=== PATIENT | female | born 1980 | race Caucasian/White ===

== ENCOUNTER 2019-01-08 08:39 | Inpatient (IN) | payer MEDICAID ==
[2019-01-08] MEDS ORDERED: BUTORPHANOL 2 MG INJ IV (10:00)
[2019-01-08] MEDS ORDERED: CARBOPROST 250 MCG INJ IM ×2 (10:00→21:00)
[2019-01-08] MEDS ORDERED: AMPICILLIN 2 GM/NS (PMX) 100 ML IV (10:00)
[2019-01-08] MEDS ORDERED: METHYLERGONOVINE 0.2 MG INJ IM ×2 (10:00→21:00)
[2019-01-08] MEDS ORDERED: OXYTOCIN 30 UNITS/LR 500 ML IV ×2 (10:00→21:00)
[2019-01-08] MEDS ORDERED: LIDOCAINE 1% (MPF) 30 ML INJ INJ (10:00)
[2019-01-08] MEDS ORDERED: MISOPROSTOL 200 MCG TAB PR ×2 (10:00→21:00)
[2019-01-08] MEDS: LACTATED RINGER'S 1,000 ML IV ×3 (10:15→17:49)
[2019-01-08] MEDS: OXYTOCIN 30 UNITS/LR 500 ML IV ×4 (10:58→20:54)
[2019-01-08 11:10] LABS: ADD MAN DIFF? NO
[2019-01-08 11:18] LABS: WHITE BLOOD COUNT 7.8 10^3/ul (4.8-10.8)
[2019-01-08 11:18] LABS: BASOPHILS % 0.3 % (0.0-2.0); EOSINOPHILS # 0.1 10^3/ul (0.0-0.5); EOSINOPHILS % 1.1 % (0.0-7.0); HEMATOCRIT 34.3 % (37.0-47.0); HEMOGLOBIN 11.2 g/dl (12.0-16.0); LYMPHOCYTES # 1.4 10^3/ul (0.8-2.9); LYMPHOCYTES % 17.6 % (15.0-51.0); MEAN CORPUSCULAR HEMOGLOBIN 30.9 pg (29.0-33.0); MEAN CORPUSCULAR HGB CONC 32.7 g/dl (32.0-37.0); MEAN CORPUSCULAR VOLUME 94.8 fl (82.0-101.0); MEAN PLATELET VOLUME 11.7 fl (7.4-10.4); MONOCYTE # 0.8 10^3/ul (0.3-0.9); MONOCYTES % 9.9 % (0.0-11.0); NEUTROPHIL # 5.5 10^3/ul (1.6-7.5); NEUTROPHILS % 69.8 % (39.0-77.0); PLATELET COUNT 134 10^3/UL (140-415); RED BLOOD COUNT 3.62 10^6/ul (4.20-5.40); RED CELL DISTRIBUTION WIDTH 13.7 % (11.5-14.5)
[2019-01-08 11:35] LABS: INR 0.89; PROTIME 12.1 Sec (11.9-14.9); PT RATIO 0.9
[2019-01-08 11:36] LABS: PARTIAL THROMBOPLASTIN TIME 29.7 Sec (23.0-35.0)
[2019-01-08] MEDS ORDERED: AMPICILLIN 1 GM/NS (PMX) 50 ML IV (14:00)
[2019-01-08 17:04] LABS: RAPID PLASMA REAGIN NONREACTIVE (NR)
[2019-01-08] MEDS ORDERED: NALOXONE (0.4 MG/ML) INJ IV (17:30)
[2019-01-08] MEDS ORDERED: DIPHENHYDRAMINE 50 MG INJ IV (17:30)
[2019-01-08] MEDS ORDERED: ONDANSETRON 4 MG INJ IV ×2 (17:30→21:00)
[2019-01-08] MEDS ORDERED: FENTAnyl 2MCG/ML-ROPIV 0.2% 100 ML BAG EPI (17:30)
[2019-01-08 19:31] LABS: CBV Base Excess -6.3 mmol/L; CBV COHb 1.6 %; CBV Oxygen Sat 77.6 mmHG; Cord Blood Venous pO2 35.8 mmHG (15.0-45.0); Fraction OxyHgb Cord Venous 75.6 %; MODE ROOM AIR; Sample Type Blood venous; Site CORD
[2019-01-08 19:33] LABS: AADO2 Cord Arterial 65.4 mmHg; Arterial Cord Blood pCO2 47.3 mmHG (25-50); CBA Base Excess -5.1 mmol/L; CBA COHb 1.4 %; CBA Oxygen Sat 61.8 mmHG; CBA Total Hemglobin 18.9 g/dl; Cord Blood Arterial pO2 27.7 mmHG (15.0-45.0); Fraction OxyHgb Cord Arterial 60.2 %; MODE ROOM AIR; MetHgb Cord Arterial 1.2 %; Site CORD
[2019-01-08] MEDS: LACTATED RINGER'S 1,000 ML IV* (20:54)
[2019-01-08] MEDS ORDERED: HYDROCODONE/APAP (5/325) TAB PO (21:00)
[2019-01-08] MEDS ORDERED: METHYLERGONOVINE 0.2 MG TAB PO (21:00)
[2019-01-08] MEDS ORDERED: DIPHENHYDRAMINE 25 MG CAP PO (21:00)
[2019-01-08] MEDS ORDERED: NA PHOSPHATE/BIPHOS 133 ML ENEMA PR (21:00)
[2019-01-08] MEDS ORDERED: ZOLPIDEM 5 MG TAB PO (21:00)
[2019-01-08] MEDS ORDERED: MAGNESIUM HYDROXIDE 30ML CUP PO (21:00)
[2019-01-08] MEDS: IBUPROFEN 800 MG TAB PO (23:27)
[2019-01-08] MEDS: LANOLIN HPA 1 PKT TOP (23:27)
[2019-01-08] MEDS: WITCH HAZEL/GLYCERIN PAD PR (23:27)
[2019-01-08] MEDS: SENNA/DOCUSATE NA (8.6MG/50MG) TAB PO (23:27)
[2019-01-08] MEDS: BENZOCAINE 20% 56 ML SPRAY TOP (23:28)
[2019-01-09] MEDS: HYDROCODONE/APAP (5/325) TAB PO ×2 (03:32→22:20)
[2019-01-09] MEDS: LACTATED RINGER'S 1,000 ML IV* ×3 (04:54→20:54)
[2019-01-09] MEDS: IBUPROFEN 800 MG TAB PO (05:35)
[2019-01-09 08:59] LABS: ADD MAN DIFF? NO
[2019-01-09 09:07] LABS: BASOPHILS % 0.2 % (0.0-2.0); EOSINOPHILS # 0.2 10^3/ul (0.0-0.5); EOSINOPHILS % 1.4 % (0.0-7.0); HEMATOCRIT 32.7 % (37.0-47.0); HEMOGLOBIN 10.7 g/dl (12.0-16.0); LYMPHOCYTES % 19.3 % (15.0-51.0); MEAN CORPUSCULAR HEMOGLOBIN 31.2 pg (29.0-33.0); MEAN CORPUSCULAR HGB CONC 32.7 g/dl (32.0-37.0); MEAN CORPUSCULAR VOLUME 95.3 fl (82.0-101.0); MONOCYTE # 0.9 10^3/ul (0.3-0.9); MONOCYTES % 8.7 % (0.0-11.0); NEUTROPHIL # 7.2 10^3/ul (1.6-7.5); NEUTROPHILS % 69.5 % (39.0-77.0); PLATELET COUNT 126 10^3/UL (140-415); RED BLOOD COUNT 3.43 10^6/ul (4.20-5.40); RED CELL DISTRIBUTION WIDTH 13.8 % (11.5-14.5)
[2019-01-09 09:07] LABS: WHITE BLOOD COUNT 10.4 10^3/ul (4.8-10.8)
[2019-01-09] MEDS: SENNA/DOCUSATE NA (8.6MG/50MG) TAB PO ×2 (10:26→21:00)
[2019-01-09] MEDS: MAGNESIUM HYDROXIDE 30ML CUP PO (14:16)
[2019-01-09] MEDS: BISACODYL 10 MG SUPP PR (17:38)
[2019-01-10] MEDS: MAGNESIUM HYDROXIDE 30ML CUP PO (05:30)
[2019-01-10] MEDS: IBUPROFEN 800 MG TAB PO (05:30)
[2019-01-10] MEDS: BISACODYL 10 MG SUPP PR (05:31)
[2019-01-10] MEDS: VARICELLA VACCINE LIVE/PF 1,350 UNIT/0.5 ML ML SC* (09:00)
[2019-01-10] MEDS: MEASLES,MUMPS,RUBELLA VACCINE INJ SC* (09:00)
[2019-01-10] MEDS: DIPHTH/TET/ACEL PERTUSS (ADULT) 0.5 ML VIAL IM* (09:00)
[2019-01-10] MEDS: HYDROCODONE/APAP (5/325) TAB PO (11:10)
[2019-01-10] MEDS: SENNA/DOCUSATE NA (8.6MG/50MG) TAB PO (11:11)
== END 2019-01-10 16:39 | disposition home or self-care (01) | DRG 807 ==
LOC: OBT 08:39 → L-D 08:40 → OBT 08:45 → L-D 08:45 → PP1 21:36
PROVIDERS: Obstetrics & Gynecology
PROC: 10E0XZZ Delivery of Products of Conception, External Approach (ICD-10-PCS; principal; 2019-01-08)
DX: O80 Encounter for full-term uncomplicated delivery (principal); Z37.0 Single live birth; Z3A.38 38 weeks gestation of pregnancy
CPT/HCPCS: 36415; 36600; 62322; 76815; 76818; 82803; 85025; 85610; 85730; 86592; 86850; 86870; 86900; 86901; 88307; 90716; 99464